=== PATIENT | male | born 1940 | race Caucasian/White ===

== ENCOUNTER 2022-03-31 08:08 | Emergency (ER) | payer MEDICARE, SELFPAY ==
[2022-03-31] VITALS (23 sets, daily range): BP systolic 113–148; BP diastolic 59–81; PULSE 90–125; RESP 9–17; TEMP 36.8; O2SAT 96–100
--- NOTE | ~2022-03-31 | XR_ITS ---
XR ankle LT min 3V 03/31/2022 10:05 Indication: Left ankle pain Procedure: 4 views left ankle Comparison: No prior studies for comparison. Findings: No fracture, subluxation or dislocation. Ankle mortise intact. There is polyarticular osteo arthritis. There are degenerative calcaneal enthesophytes. No focal soft tissue abnormality. No forei gn bodies. Impression: 1: No acute fracture. Reviewed, dictated and finalized at location A. Impression: 1: No acute fracture.
--- NOTE | ~2022-03-31 | XR_ITS ---
XR knee LT min 4V 03/31/2022 10:05 Indication: Left knee pain after fall Procedure: 4 views left knee Comparison: No prior studies for comparison. Findings: There is moderate-severe tricompartment osteoarthritis. There are multiple loose bodies adj acent to the joint. Large joint effusion. There is atherosclerosis. Impression: 1: Moderate-severe osteoarthritis of the left knee. Reviewed, dictated and finalized at location A. Impression: 1: Moderate-severe osteoarthritis of the left knee.
--- NOTE | ~2022-03-31 | XR_ITS ---
EXAMINATION: XR chest 1V 03/31/2022 10:08 INDICATION: Status post fall. Weakness. PROCEDURE: AP view of the chest COMPARISON: No prior studies for comparison. FINDINGS: The lungs are clear. The cardiomediastinal silhouette is within normal limits. There are no pleural effusions. There is no pneumothorax suspected. There is a calcified granuloma in the rig ht lower thorax. There is atherosclerosis of the aorta. There are degenerative changes of the shoulde rs. IMPRESSION: 1: NO ACUTE CARDIOPULMONARY DISEASE. Reviewed, dictated and finalized at location A.
--- NOTE | ~2022-03-31 | CT_ITS ---
EXAMINATION: CT cervical spine wo con DATE: 03/31/2022 09:52 INDICATION: Neck pain after fall TECHNIQUE: Computed tomography (CT) of the cervical spine was performed without intravenous contrast. The dose-length product was 426 mGy-cm. Automated exposure control and iterative reconstruction tech nique were employed. COMPARISON: None FINDINGS: There is degenerative disc disease at all cervical spine levels. There is degenerative ante rolisthesis at C3-4 measuring 3 mm. There is degenerative anterolisthesis at C4-5. There are prominen t ventral osteophytes at multiple levels. Odontoid process is normal. Lateral masses are normally ali gned. There is moderate-severe multilevel uncinate and facet hypertrophy. Craniovertebral junction is normal. No evidence for perched facet. Lung apices are normal. There is intracranial atherosclerosis . IMPRESSION: 1. No acute abnormality of the cervical spine. 2: Severe cervical spondylosis. Reviewed, dictated and finalized at location A.
--- NOTE | ~2022-03-31 | CT_ITS ---
EXAMINATION: CT brain wo con DATE: 03/31/2022 09:51 INDICATION: Status post fall. Headache. TECHNIQUE: Computed tomography (CT) of the head was performed without intravenous contrast. The dose- length product was 605.33 mGy-cm. Automated exposure control and iterative reconstruction technique w ere employed. COMPARISON: None FINDINGS: Generalized atrophy. There is a focal hyperdensity in the left cerebellum, image 17. This c ould represent parenchymal hemorrhage or calcification. No prior examinations are available for [place]. There are scattered mild periventricular and subcortical white matter changes, most likely rel ated to small vessel ischemic disease (microangiopathy). There is intracranial atherosclerosis. There is a small chronic left lacunar infarction. There is a small mucous retention cyst of the right maxi llary sinus. There is a small left mastoid effusion. No depressed skull fractures. IMPRESSION: 1. Small hyperdensity left cerebellum measuring 6 mm without associated mass effect. This may represe nt focal parenchymal hemorrhage or calcification. 2: Chronic age-related findings. 3: Chronic left lacunar infarction. Reviewed, dictated and finalized at location A. IMPRESSION: 1. Small hyperdensity left cerebellum measuring 6 mm without associated mass ef fect. This may represent focal parenchymal hemorrhage or calcification. 2: Chronic age-related findings. 3: Chronic left lacunar infarction.
--- NOTE | ~2022-03-31 | XR_ITS ---
XR hip BI 2V w AP pelvis 03/31/2022 10:05 Indication: Pelvic pain after fall Procedure: AP pelvis and 2 views each hip Comparison: No prior studies for comparison. 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 Pelvic rings are intact. Sacral for amen are symmetric. There are vascular calcifications. No acute fracture or traumatic malalignment. T here is lower lumbar spondylosis. Impression: 1: No acute fracture. Reviewed, dictated and finalized at location A. Impression: 1: No acute fracture.
--- NOTE | 2022-03-31 08:25 | ECG_ITS ---
Measurements Intervals Theresa Rate: 114 P: 3 NC: 154 QRS: 51 QRSD: 113 T: 2 QT: 334 QTc: 461 Interpretive Statements SINUS TACHYCARDIA INCOMPLETE RIGHT BUNDLE BRANCH BLOCK [90+ ms QRS DURATION, TERMINAL R IN V1/V2, 40+ ms S IN I/aVL/V4/V5/V6] ABNORMAL RHYTHM ECG NO PREVIOUS ECG AVAILABLE FOR COMPARISON Electronically Signed On 04-01-2022 10:06:43 CDT by Dann Lopez M.D.
--- NOTE | 2022-03-31 08:41 | ED.GENADULT ---
HPI - General Adult General Chief complaint: Fall Stated complaint: slide out of bed Source: RN notes reviewed History of Present Illness HPI narrative: Patient presents emergency department from home via EMS for a fall. History is per the patient's and daughter that are present as well as the patient patient was at home with his he has a history of dementia he is unable to give any full recollection of the fall per the she came and found the patient down on the ground next to the bed. Patient that time had been complaining of some hip pain as well as knee pain but currently does deny needing any pain in the emergency department. Patient is at his baseline mentally per family. The patient currently denies any chest pain shortness of breath abdominal pain in his left leg. Per the family patient has a wound over his left heel that has been seeing podiatry for been recently recommended to see vascular Related Data Allergies Allergy/AdvReac Type Severity Reaction Status Date / Time No Known Allergies Allergy Unverified 03/31/22 09:17 Review of Systems Review of Systems: Gen.: Denies fevers or chills ENT: Denies c facial pain Respiratory: Denies shortness of breath or cough CV: Denies chest pain GI: Denies abdominal pain nausea, emesis or diarrhea denies burning, urgency, frequency or hematuria Musculoskeletal: See HPI Neuro: Denies headache or weakness Skin: Reports abrasions Except as documented, all other systems reviewed and negative [facility] Past Medical History Medical History (Updated 03/31/22 @ 11:09 by Raj Kim DO) Dementia Social History Social History (Updated 03/31/22 @ 11:05 by Raj Kim DO) Smoking status: Never smoker Exam Narrative: APPEARANCE: No acute distress, nontoxic, resting in bed EYES: EOMI, PERRL HEENT: Normocephalic atraumatic, no facial tenderness Neck: Supple no midline tenderness palpation RESPIRATORY: No respiratory distress Clear to auscultation bilaterally with no rhonchi wheezing or rales. CARDIOVASCULAR: Regular rate and rhythm without murmurs rubs or gallops. ABDOMINAL: Soft, nontender, nondistended, no rebound or guarding MUSCULOSKELETAl: Moves all extremities. No clubbing, cyanosis or edema. No tenderness of the bilateral upper extremities no tenderness of the right hip knee or ankle mild tenderness over the left lateral hip as well as left anterior lateral knee mild swelling of the left knee mild tenderness of the left hip earlier dorsalis pedis pulse 2+ neurovascular intact NEURO: Awake and alert x 2. Following commands, speech normal, no focal deficits SKIN:: Warm, dry. No rashes left lateral heel has a circular wound with mild surrounding erythema and eschar present no drainage superficial abrasions over the left knee and a small superficial abrasion over the right fourth toe over the plantar aspect with mild venous bleeding no signs of infection PSYCHIATRIC: Normal affect/mood, Course Course Emergency Course: Discussed Dr. Doty radiology states that MRI would not help differentiate calcification versus bleed states that patient had old imaging it would be helpful I discussed with the family they have no known old imaging of the head Discussed with family the patient's been seen podiatry for his foot wound patient has had a history of anemia before in the past but no history of thrombocytopenia they are aware of discussed CT scan need for transfer request brought this time Discussed with Dr. Dillard at [facility] who accepts transfer at this time Discussed with the patient's and daughter who present the patient is a DNR he would not want intubated or CPR Vital Signs Vital signs: Vital Signs Temperature 98.2 F 03/31/22 08:07 Pulse Rate 124 H 03/31/22 08:07 Respiratory Rate 14 03/31/22 08:07 Blood Pressure 142/81 H 03/31/22 08:07 Pulse Oximetry 100 03/31/22 08:07 Temperature 98.2 F 03/31/22 08:07 Pulse Rate
[2022-03-31 08:46] LABS: Hematocrit 34.6 % (42.0-52.0); Hemoglobin 10.7 g/dL (14.0-18.0); Immature Platelet Fraction Pct 8.7 % (0.9-11.2); Mean Corpuscular HGB Conc 30.9 g/dl (32-36); Mean Corpuscular Hemoglobin 27.9 pg (26-34); Mean Corpuscular Volume 90.1 fl (80-100); Mean Platelet Volume 9.8 fl (7.4-10.4); Platelet Count Result 82 k/mm3 (150-375); Red Blood Count 3.84 M/mm3 (4.6-6.20); Red Cell Distribution Width 16.2 % (11.5-14.5); White Blood Count 18.7 K/mm3 (4.5-10.0)
[2022-03-31 08:58] LABS: INR 1.3
[2022-03-31 08:59] LABS: Partial Thromboplastin Time 31.6 SECONDS (22.3-36.8)
[2022-03-31 09:00] LABS: Alanine Aminotransferase 32 U/L (6-50); Albumin Level 4.6 g/dL (3.5-5.1); Alkaline Phosphatase 94 U/L (38-126); Anion Gap 15 mmol/L (8-16); Aspartate Amino Transferase 56 U/L (17-59); Bilirubin,Total 0.8 mg/dL (0.2-1.3); Blood Urea Nitrogen 23 mg/dL (9-20); Calcium 9.5 mg/dL (8.4-10.2); Carbon Dioxide 21 mmol/L (22-30); Chloride 104 mmol/L (98-107); Estimated Glomerular Filt Rate 58; Glucose 183 mg/dL (65-110); Potassium 4.1 mmol/L (3.4-5.0); Sodium 140 mmol/L (137-145)
[2022-03-31 09:10] LABS: Band Neutrophils Percent 1 % (0-6); Lymphocytes Absolute Manual 2.05 K/mm3 (1.1-4.5); Monocytes Absolute Manual 3.36 K/mm3 (0.1-0.90); Monocytes Percent Manual 18 % (3-9); Neutrophils Absolute Manual 13.27 K/mm3 (1.3-6.7); Neutrophils Percent Manual 70 % (46-73); Total Cells Counted 100
[2022-03-31 09:15] LABS: Anisocytosis 2+ (NORMAL); Hypochromasia 2+ (NORMAL); Macrocytosis 2+ (NORMAL); Microcytosis 1+ (NORMAL); Platelet Estimate Decreased (Adequate)
[2022-03-31 09:16] LABS: Schistocytes None Seen (NORMAL)
[2022-03-31] MEDS: SODIUM CHLORIDE 0.9% IV 1,000 ML 999 ML IV CONT (09:18)
[2022-03-31 09:47] LABS: Add Urine Microscopic? YES; Appearance Urine Cloudy (Clear); Bilirubin Urine Negative (Negative); Blood Urine Negative (Negative); Calcium Oxalate Crystals Urine Present /hpf; Color Urine Amber (Yellow); Glucose Urine UA Negative (Negative); Ketones Urine Negative (Negative); Leukocyte Esterase Ur Negative LEU/UL (Negative); Mucus Urine Rare /lpf; Nitrate Urine Negative (Negative); Protein Urine 1+ mg/dL (Negative); RBC Urine 0-2 /hpf (0-2); Specific Grav Ur 1.021 (1.001-1.035); Urobilinogen Urine Negative mg/dL (<2.0); WBC Urine 0-3 /hpf
--- NOTE | 2022-03-31 10:49 | PC.NURSE ---
ALS transfer to [facility] [address] [facility] ETA 12p
--- NOTE | 2022-03-31 11:11 | PC.NURSE ---
Report given to BOB Norris at [facility]. Awaiting EMS for transport
[2022-03-31] MEDS: TETANUS,DIPHTHERIA,AC PERTUSSIS ADULT (0.5 ML) BOOSTRIX IM (11:18)
== END 2022-03-31 12:26 | disposition short-term general hospital (02) ==
PROVIDERS: Emergency Provider Emergency Medicine; PCP Internal Medicine
DX: A41.9 Sepsis, unspecified organism (principal); I62.9 Nontraumatic intracranial hemorrhage, unspecified; D69.6 Thrombocytopenia, unspecified; L03.116 Cellulitis of left lower limb; S80.212A Abrasion, left knee, initial encounter; W06.XXXA Fall from bed, initial encounter; F03.90 Unspecified dementia, unspecified severity, without behavioral disturbance, psychotic disturbance, mood disturbance, and anxiety; I45.10 Unspecified right bundle-branch block; Z23 Encounter for immunization
CPT/HCPCS: 36415; 70450; 71045; 72125; 73521; 73564; 73610; 80053; 81001; 83605; 85025; 85055; 85610; 85730; 87040; 90471; 90715; 93005; 96361; 96365; 96367; 99291; J0131; J0690; J7030